=== PATIENT | female | born 1995 | race African-American/Black ===

== ENCOUNTER 2023-07-17 08:17 | Emergency (ER) | payer OTHER, SELFPAY ==
[2023-07-17 08:12] VITALS: BP 122/85; PULSE 76; RESP 16; TEMP 36.4; O2SAT 100
[2023-07-17] MEDS: levETIRAcetam 1000MG/NACL100ML 1,000 MG/100 ML BAG 400 MG IVPB (08:41)
[2023-07-17 08:42] VITALS: PULSE 104; RESP 25
[2023-07-17] MEDS: SODIUM CHLORIDE 0.9% IV 1,000 ML 999 ML IV CONT (08:43)
[2023-07-17 08:44] VITALS: PULSE 84
[2023-07-17 08:44] LABS: Basophils Absolute Auto 0.1 K/mm3 (0.0-0.1); Basophils Percent Auto 0.9 % (0.2-1.2); Eosinophils Absolute Auto 0.1 K/mm3 (0-0.3); Eosinophils Percent Auto 0.7 % (0-4.4); Hematocrit 36.7 % (37.0-47.0); Immature Granulocyte Absolute 0.02 K/mm3 (0.00-0.031); Immature Granulocyte Percent A 0.3 % (0-0.5); Lymphocytes Absolute Auto 1.86 K/mm3 (0.9-3.2); Lymphocytes Percent Auto 27.5 % (18.3-44.2); Mean Corpuscular HGB Conc 32.7 g/dl (32-36); Mean Corpuscular Hemoglobin 29.4 pg (26-34); Mean Platelet Volume 11.6 fl (7.4-10.4); Monocytes Absolute Auto 0.3 K/mm3 (0.1-0.6); Neutrophils Absolute Auto 4.5 K/mm3 (1.3-6.7); Neutrophils Percent Auto 66.6 % (45.5-73.1); Platelet Count Result 197 k/mm3 (150-375); Red Blood Count 4.08 M/mm3 (4.2-5.4); Red Cell Distribution Width 12.5 % (11.5-14.5); White Blood Count 6.8 K/mm3 (4.5-10.0)
[2023-07-17 08:45] VITALS: BP 132/94; PULSE 90; RESP 16; O2SAT 98
--- NOTE | 2023-07-17 08:48 | ED.SEIZURE ---
HPI - Seizure General Chief Complaint: Seizure Stated Complaint: SEIZURE History of Present Illness HPI Narrative: patient is a 28-year-old female who presents ER from the local longterm after having a seizure. Patient has history of known seizure disorder. She takes 1.5 g of Keppra twice a day. Patient currently postictal. Related Data Allergies Allergy/AdvReac Type Severity Reaction Status Date / Time No Known Allergies Allergy Verified 07/17/23 08:38 Review of Systems Review of Systems: ROS unobtainable: Yes unobtainable due to mental status PMFSH Past Medical History Medical History (Updated 07/17/23 @ 15:57 by Raza Rivera MD) Epilepsy Surgical History Surgical History (Updated 07/17/23 @ 15:57 by Raza Rivera MD) Surgical history unknown Exam Narrative: GENERAL: Well-appearing, well-nourished, and in no acute distress. HEAD: Normocephalic, atraumatic. EYES: PERRL and EOMI. ENT: Mucous membranes moist. NECK: Supple. CHEST: Clear to auscultation. No respiratory distress. HEART: Regular rate and rhythm. Normal peripheral pulses. ABDOMEN: Soft, nontender, nondistended. EXTREMITIES: Normal range of motion. No edema. SKIN: Warm, dry, no rash. Moves all extremities. . After waking up alert orient x3. No focal deficits. NEURO: postictal and sleeping. PSYCH: Normal mood and affect. Course Course Emergency Course: 847: Patient is now awake alert orient x4. She would not like any workup for her seizure. She will allow us to continue to infuse the Keppra until it is done. She will be discharged. She reports her last dose of Keppra was yesterday at 3:00 p.m.. Blood work returning and patient educated on hypocalcemia and hypokalemia. Will give oral replacement the patient does not wish to stay in the ER any longer than she has to. Patient's low electrolyte levels felt to be related to her alcohol abuse. She is getting a ride home. Vital Signs Vital signs: Vital Signs Temperature 97.6 F 07/17/23 08:12 Pulse Rate 76 07/17/23 08:12 Respiratory Rate 16 07/17/23 08:12 Blood Pressure 122/85 07/17/23 08:12 Pulse Oximetry 100 07/17/23 08:12 Oxygen Delivery Room Air 07/17/23 08:12 Temperature 97.6 F 07/17/23 08:12 Pulse Rate 90 07/17/23 08:45 Respiratory Rate 16 07/17/23 08:45 Blood Pressure 132/94 H 07/17/23 08:45 Pulse Oximetry 98 07/17/23 08:45 Oxygen Delivery Room Air 07/17/23 08:12 MDM - Seizure Lab Data 07/17/23 08:39 07/17/23 08:39 Labs: Lab Results 07/17/23 Range/Units 08:39 WBC 6.8 (4.5-10.0) K/mm3 RBC 4.08 L (4.2-5.4) M/mm3 Hgb 12.0 (12.0-15.0) g/dL Hct 36.7 L (37.0-47.0) % MCV 90.0 (80-100) fl MCH 29.4 (26-34) pg MCHC 32.7 (32-36) g/dl RDW 12.5 (11.5-14.5) % Plt Count 197 (150-375) k/mm3 MPV 11.6 H (7.4-10.4) fl Immature Gran % (Auto) 0.3 (0-0.5) % Neut % (Auto) 66.6 (45.5-73.1) % Lymph % (Auto) 27.5 (18.3-44.2) % [place] % (Auto) 4.0 (2.6-8.5) % Eos % (Auto) 0.7 (0-4.4) % Baso % (Auto) 0.9 (0.2-1.2) % Lymph # (Auto) 1.86 (0.9-3.2) K/mm3 [place] # (Auto) 0.3 (0.1-0.6) K/mm3 Eos # (Auto) 0.1 (0-0.3) K/mm3 Baso # (Auto) 0.1 (0.0-0.1) K/mm3 Abs Immat Gran (auto) 0.02 (0.00-0.031) K/mm3 Absolute Neuts (auto) 4.5 (1.3-6.7) K/mm3 Absolute Nucleated RBC 0.000 (0.0-0.012) K/mm3 Nucleated RBC % 0.0 (0.0-0.2) % Sodium 144 (137-145) mmol/L Potassium 2.5 L* (3.4-5.0) mmol/L Chloride 118 H (98-107) mmol/L Carbon Dioxide 19 L (22-30) mmol/L Anion Gap 7 L (8-16) mmol/L BUN 8 (7-17) mg/dL Creatinine 0.60 L (0.7-1.0) mg/dL Estim Creat Clear Calc 110 ml/min Estimated GFR > 60 (59 - ) Glucose 81 (65-110) mg/dL Calcium 6.8 L (8.4-10.2) mg/dL Total Bilirubin 0.3 (0.2-1.3) mg/dL AST 23 (14-36) U/L ALT 14 (6-35) U/L Alkaline Phosphatase 45 (38-126) U/L Total Protein 6.0 L (6.3-8.2)
[2023-07-17 08:53] LABS: Ethanol 211 mg/dL (<10)
--- NOTE | 2023-07-17 08:56 | PC.NURSE ---
Pt refusing to keep vital sign equipment on
[2023-07-17 08:58] LABS: Alanine Aminotransferase 14 U/L (6-35); Albumin Level 3.2 g/dL (3.5-5.1); Alkaline Phosphatase 45 U/L (38-126); Anion Gap 7 mmol/L (8-16); Aspartate Amino Transferase 23 U/L (14-36); Bilirubin,Total 0.3 mg/dL (0.2-1.3); Blood Urea Nitrogen 8 mg/dL (7-17); Calcium 6.8 mg/dL (8.4-10.2); Carbon Dioxide 19 mmol/L (22-30); Chloride 118 mmol/L (98-107); Estimated CRCL calculation 110 ml/min; Estimated Glomerular Filt Rate > 60; Glucose 81 mg/dL (65-110); Potassium 2.5 mmol/L (3.4-5.0); Sodium 144 mmol/L (137-145)
--- NOTE | 2023-07-17 09:00 | PC.NURSE ---
This RN went into pt room and discovered pt had removed her IV and began to yell out. Security present. Pt then refused to wait to receive her Calcium Carbonate but agreed to take the 40 meq Potassium. This RN attempted to educate pt but education was refused. Pt refused to have vital signs taken again.
--- NOTE | 2023-07-17 09:10 | PC.NURSE ---
pt angry about being unable to find my mother fucking money screaming that the officer took her baby's money. security at bedside attempting to de-escalate the pt
[2023-07-17] MEDS: POTASSIUM CHLORIDE 20 MEQ ER TABLET 40 MEQ PO (09:17)
== END 2023-07-17 09:25 | disposition home or self-care (01) ==
LOC: ANHED 09:02
PROVIDERS: Emergency Provider Emergency Medicine
DX: G40.909 Epilepsy, unspecified, not intractable, without status epilepticus (principal); E83.51 Hypocalcemia; E87.6 Hypokalemia; F10.10 Alcohol abuse, uncomplicated; Y90.7 Blood alcohol level of 200-239 mg/100 ml
CPT/HCPCS: 36415; 80053; 80307; 85025; 96365; 99284; A9270; J1953; J7030